=== PATIENT | female | born 1945 | race Caucasian/White ===

== ENCOUNTER 2023-11-10 15:11 | Emergency (ER) | payer BC, OTHER ==
[~2023-11-10] VITALS: Ht 165.1 cm; Wt 66.8 kg
[2023-11-10] MEDS ORDERED: ACETAMINOPHEN 500 MG TAB PO ONE (17:15)
[2023-11-10 17:26] VITALS: BP 143/95; PULSE 75; RESP 18; TEMP 97.4; O2SAT 94
== END 2023-11-10 18:09 | disposition home or self-care (01) ==
LOC: ER 15:11
DX: S76.012A Strain of muscle, fascia and tendon of left hip, initial encounter (principal); R51.9 Headache, unspecified; Z88.0 Allergy status to penicillin; V49.9XXA Car occupant (driver) (passenger) injured in unspecified traffic accident, initial encounter; W22.10XA Striking against or struck by unspecified automobile airbag, initial encounter; Y93.89 Activity, other specified; Y92.488 Other paved roadways as the place of occurrence of the external cause; Y99.8 Other external cause status
CPT/HCPCS: 70450; 73502